=== PATIENT | female | born 1980 | race Caucasian/White ===

== ENCOUNTER 2024-01-06 09:04 | Emergency (ER) | payer BC ==
[~2024-01-06] VITALS: Ht 167.6 cm; Wt 59.9 kg
[~2024-01-06 09:04] MED LIST: BENADRYL25 MG PO; LEXAPRO20 MG PO; PEPCID20 MG PO; PREDNICOT20 MG PO; SEPTDS PO; ZITHROMAX TRI-500 MG PO
[2024-01-06 09:13] VITALS: BP 127/88
== END 2024-01-06 10:23 | disposition home or self-care (01) ==
LOC: ED 09:04
DX: L02.412 Cutaneous abscess of left axilla (principal); Z48.01 Encounter for change or removal of surgical wound dressing; Z91.030 Bee allergy status; Z79.2 Long term (current) use of antibiotics; Z79.899 Other long term (current) drug therapy

== ENCOUNTER → 2024-01-07 | Outpatient (CLI) | payer BC | END | disposition home or self-care (01) | LOC: WOUNDCARE 02:05 | PROVIDERS: ATTEND Nurse Practitioner Family | DX: T81.30XA Disruption of wound, unspecified, initial encounter (principal); L02.412 Cutaneous abscess of left axilla; L03.112 Cellulitis of left axilla; R60.9 Edema, unspecified; L53.9 Erythematous condition, unspecified; F32.A Depression, unspecified; F17.210 Nicotine dependence, cigarettes, uncomplicated; Y83.8 Other surgical procedures as the cause of abnormal reaction of the patient, or of later complication, without mention of misadventure at the time of the procedure; Y92.89 Other specified places as the place of occurrence of the external cause ==

== ENCOUNTER → 2024-01-14 | Outpatient (CLI) | payer BC | END | disposition home or self-care (01) | LOC: WOUNDCARE 01:37 | PROVIDERS: ATTEND Nurse Practitioner Family | DX: T81.30XD Disruption of wound, unspecified, subsequent encounter (principal); L02.412 Cutaneous abscess of left axilla; L03.112 Cellulitis of left axilla; R60.9 Edema, unspecified; L53.9 Erythematous condition, unspecified; F32.A Depression, unspecified; F17.290 Nicotine dependence, other tobacco product, uncomplicated; Z79.899 Other long term (current) drug therapy; Y83.8 Other surgical procedures as the cause of abnormal reaction of the patient, or of later complication, without mention of misadventure at the time of the procedure ==